=== PATIENT | female | born 1985 ===

== ENCOUNTER 2022-03-08 10:07 | Emergency (ER) | payer MEDICAID ==
--- NOTE | 2022-03-08 13:34 | XRay Report ---
RIGHT KNEE 3 VIEW(S) INDICATION / CLINICAL INFORMATION: knee injury COMPARISON: None available. FINDINGS: BONES / JOINT(S): There are amorphous calcifications located in the intercondylar notch which is nons pecific. This can be further evaluated with MRI to evaluate for ligamentous injury. No acute displace d fracture or dislocation identified. Trace joint effusion. SOFT TISSUES: No significant abnormality. ADDITIONAL FINDINGS: None. Signer Name: Josesito Swain MD Signed: 03/08/2022 1:30 PM Workstation Name: [id number]
--- NOTE | 2022-03-08 14:41 | Emergency Department Report ---
ED Lower Extremity HPI - General Chief Complaint: Extremity Injury, Lower Stated Complaint: RT KNEE PAIN Time Seen by Provider: 03/08/22 14:21 Source: patient Mode of arrival: Ambulatory Limitations: No Limitations - History of Present Illness Initial Comments: Patient is a 37-year-old female that comes to the ER with a recurrent injury to the right knee. She states that someone picked her up and she felt a pop. Since then she has had sharp pain underneath the right meniscus. Is worse with movement. Relieved with immobilization. She denies any other injury. She is neurovascularly and peripheral vascularly intact MD Complaint: knee injury -: Sudden, days(s) Injury: Knee: Right Place: home Severity scale (0 -10): 4 Improves With: immobilization Worsens With: weight bearing - Related Data Allergies Allergy/AdvReac Type Severity Reaction Status Date / Time No Known Allergies Allergy Verified 03/08/22 12:53 ED Review of Systems ROS: Stated complaint: RT KNEE PAIN Other details as noted in HPI Comment: All other systems reviewed and negative ED Past Medical Hx - Past Medical History Previous Medical History?: No - Surgical History Past Surgical History?: No - Family History Family history: no significant - Social History Smoking Status: Never Smoker Substance Use Type: None ED Physical Exam - General Limitations: No Limitations General appearance: alert, in no apparent distress - Head Head exam: Present: atraumatic, normocephalic - Eye Eye exam: Present: normal appearance - ENT ENT exam: Present: mucous membranes moist - Neck Neck exam: Present: normal inspection - Respiratory Respiratory exam: Present: normal lung sounds bilaterally. Absent: respiratory distress - Cardiovascular Cardiovascular Exam: Present: regular rate, normal rhythm. Absent: systolic murmur, diastolic murmur, rubs, gallop - GI/Abdominal GI/Abdominal exam: Present: soft, normal bowel sounds - Extremities Exam Extremities exam: Present: normal inspection - Back Exam Back exam: Present: normal inspection - Neurological Exam Neurological exam: Present: alert, oriented X3 - Psychiatric Psychiatric exam: Present: normal affect, normal mood - Skin Skin exam: Present: warm, dry, intact, normal color. Absent: rash ED Course Vital Signs 03/08/22 12:54 Temperature 97.9 F Pulse Rate 63 Respiratory 16 Rate O2 Sat by Pulse 95 Oximetry ED Lower Extremity MDM - Radiology Data Radiology results: report reviewed, image reviewed No acute process - Medical Decision Making X-ray noted. Patient placed in a knee immobilizer and on crutches. Patient remains peripheral vascularly intact. Patient being discharged home with discharge plan of care including diet, activity medications and follow-up. She understands she needs to see orthope dics. Vital Signs 03/08/22 12:54 Temperature 97.9 F Pulse Rate 63 Respiratory 16 Rate O2 Sat by Pulse 95 Oximetry - Differential Diagnosis Rule out fracture Critical care attestation.: If time is entered above; I have spent that time in minutes in the direct care of this critically ill patient, excluding procedure time. ED Disposition Clinical Impression: Knee pain Qualifiers: Chronicity: acute Laterality: right Qualified Code(s): M25.561 - Pain in right knee Disposition: HOME / SELF CARE / HOMELESS Is pt being admited?: No Does the pt Need Aspirin: No Condition: Stable Instructions: Acute Knee Pain, Adult Additional Instructions: Rest, ice and elevate leg. Immobilizer and crutches for rest for 48 hours follow-up with orthopedics for additional imaging Referral below Motrin or Tylenol for pain Referrals: SHERIN DELGADO MD [Staff Physician] - 3-5 Days Forms: Work/School Release Form(ED) Time of Disposition: 14:47
[2022-03-08] MEDS ORDERED: IBUPROFEN 800 MG TAB PO ONE (14:59)
== END 2022-03-08 15:37 | disposition home or self-care (01) ==
LOC: ED 10:07
DX: M25.561 Pain in right knee (principal)
CPT/HCPCS: 99283